=== PATIENT | female | born 1955 | race African-American/Black ===

== ENCOUNTER 2025-06-30 22:48 | Inpatient (IN) | payer BC, MEDICAID ==
[~2025-06-30] VITALS: Ht 172.7 cm; Wt 192.3 kg
[2025-06-30] MEDS: LIDOCAINE HCL 1% 20ML VIAL INFIL ONE (23:15)
[2025-07-01 00:04] LABS: BASOPHILS % 0.4 % (0.0-2.0); EOSINOPHILS % 0.4 % (0.0-5.0); HEMATOCRIT. 44.8 % (36.0-48.0); HEMOGLOBIN. 13.5 g/dL (12.0-16.0); LYMPHOCYTES % 13.5 % (20.0-50.0); MEAN PLATELET VOLUME 8.6 fl (7.4-10.4); MONOCYTES % 6.1 % (2.0-8.0); NEUTROPHILS % 79.6 % (40.0-76.0); PLATELET 216 x1000/uL (130-400); RED BLOOD CELL COUNT 4.69 mill/uL (4.2-5.4); RED CELL DISTRIBUTION WIDTH 18.6 % (11.6-14.6)
[2025-07-01 00:19] LABS: TROPONIN I HIGH SENSITIVITY 8 ng/L (3.0-34)
[2025-07-01 00:46] LABS: CREATININE 1.3 mg/dL (0.6-1.0); UREA NITROGEN BLOOD 17 mg/dL (9-23)
[2025-07-01 00:47] LABS: PROTEIN TOTAL 7.8 g/dL (6.0-8.3)
[2025-07-01 00:48] LABS: ASPARTATE AMINOTRANSFERASE 45 IU/L (<34); BILIRUBIN DIRECT 0.2 mg/dL (<=3.0)
[2025-07-01 00:49] LABS: BILIRUBIN TOTAL 0.5 mg/dL (0.1-1.0)
[2025-07-01] MEDS: SODIUM CHLORIDE 0.9% 1,000 ML IV ONE (00:50)
[2025-07-01] MEDS: KETOROLAC 15MG/ML VIAL IV NR (02:06)
[2025-07-01 02:44] LABS: CREATININE 1.3 mg/dL (0.6-1.0); UREA NITROGEN BLOOD 22.0 mg/dL (9-23)
[2025-07-01] MEDS ORDERED: ONDANSETRON HCL 4MG/2ML INJ IV PRN (02:45)
[2025-07-01] MEDS ORDERED: GUAIFENESIN 200MG/10ML SUGAR FREE UDC PO PRN (02:45)
[2025-07-01] MEDS ORDERED: ACETAMINOPHEN 325MG TABLET PO PRN (02:45)
[2025-07-01 03:55] VITALS: BP 122/41; PULSE 78; RESP 20; TEMP 36.6404
[2025-07-01] MEDS: FUROSEMIDE 20MG TABLET PO SCH (05:13)
[2025-07-01] MEDS: GABAPENTIN 300MG CAPSULE PO SCH (06:05)
[2025-07-01] MEDS: LEVOTHYROXINE SODIUM 25MCG TABLET PO SCH (06:05)
[2025-07-01 07:25] LABS: INFLUENZA TYPE A Presumptive Negative (Pres. Neg.); INFLUENZA TYPE B Presumptive Negative (Pres. Neg.); RESPIRATORY SYNCYTIAL VIRUS Not Detected (Not Detectd)
[2025-07-01 08:00] VITALS: BP 118/61; PULSE 76; RESP 20; TEMP 36.5; O2SAT 94
[2025-07-01] MEDS: APIXABAN 5 MG TABLET PO SCH (08:58)
[2025-07-01] MEDS: FOLIC ACID/VITAMIN B COMP W-C TABLET PO SCH (08:58)
[2025-07-01] MEDS: HYDROCHLOROTHIAZIDE 25MG TABLET PO SCH (08:59)
[2025-07-01] MEDS: PANTOPRAZOLE 40MG DR TABLET PO SCH (08:59)
[2025-07-01] MEDS: OXYBUTYNIN CHLORIDE 5MG TABLET PO SCH (08:59)
[2025-07-01] MEDS: LOSARTAN 100 MG TABLET PO SCH (09:01)
[2025-07-01 12:00] VITALS: BP 99/44; PULSE 81; RESP 17; TEMP 36.7; O2SAT 93
[2025-07-01 12:35] LABS: FOLIC ACID (FOLATE) SERUM > 20.00 ng/mL (>5.38)
[2025-07-01 12:36] LABS: VITAMIN B12 SERUM 615 pg/mL (211-911)
[2025-07-01 16:00] VITALS: BP 101/46; PULSE 71; RESP 17; TEMP 36.7; O2SAT 89
[2025-07-01] MEDS: MONTELUKAST SODIUM 10MG TABLET PO SCH (18:07)
[2025-07-01 20:00] VITALS: BP 118/64; PULSE 79; RESP 20; TEMP 36.4; O2SAT 94
[2025-07-01] MEDS: ATORVASTATIN CALCIUM 40MG TABLET PO SCH (22:03)
[2025-07-02] VITALS (13 sets, daily range): BP systolic 103–121; BP diastolic 58–73; PULSE 72–83; RESP 15–32; TEMP 36.3–36.8; O2SAT 87–97
[2025-07-02] MEDS: IPRATROPIUM/ALBUTEROL 0.5-3(2.5)MG/3ML NEB HHN PRN (09:16)
[2025-07-02 09:42] LABS: BG BASE EXCESS 0.6 mmol/L (-2.0-3.0); BG CARBOXYHEMOGLOBIN 2.5 % (0.5-1.5); BG DEOXYHEMOGLOBIN 12.4 % (0.0-5.0); BG FLOW(L/min) 5.00 L/min; BG FRACTION INSPIRED OXYGEN 40; BG HCO3 ACT 35.3 mmol/L (21.0-28.0); BG METHEMOGLOBIN 0.2 % (0.5-1.5); BG OXYGEN SATURATION 87.3 % (94.0-98.0); BG OXYHEMOGLOBIN 84.9 % (94.0-98.0); BG PCO2 129.3 mmHg (32.0-45.0); BG PH 7.054 (7.350-7.450); BG PO2 55.9 mmHg (83.0-108.0); BG SAMPLE SITE RIGHT RADIAL; BG TOTAL HEMOGLOBIN 14.3 g/dL (12.0-16.0); BG VENT MODE NASAL CANNULA
[2025-07-02] MEDS ORDERED: DIPHENHYDRAMINE 50MG/ML VIAL IV ONE (10:45)
[2025-07-02] MEDS: METHYLPREDNISOLONE SOD SUCC 125MG/2ML (ACT-O-VIAL) IV NR (11:20)
[2025-07-02] MEDS: IPRATROPIUM/ALBUTEROL 0.5-3(2.5)MG/3ML NEB HHN SCH (12:24)
[2025-07-02] MEDS: BUDESONIDE 0.5MG/2ML NEB HHN SCH (12:24)
[2025-07-02 12:36] LABS: BG BASE EXCESS 2.9 mmol/L (-2.0-3.0); BG CARBOXYHEMOGLOBIN 2.4 % (0.5-1.5); BG DEOXYHEMOGLOBIN 7.2 % (0.0-5.0); BG FRACTION INSPIRED OXYGEN 55; BG HCO3 ACT 36.5 mmol/L (21.0-28.0); BG METHEMOGLOBIN 0.3 % (0.5-1.5); BG OXYGEN SATURATION 92.6 % (94.0-98.0); BG OXYHEMOGLOBIN 90.1 % (94.0-98.0); BG PCO2 118.3 mmHg (32.0-45.0); BG PH 7.107 (7.350-7.450); BG PO2 65.9 mmHg (83.0-108.0); BG SAMPLE SITE RIGHT RADIAL; BG TOTAL HEMOGLOBIN 13.9 g/dL (12.0-16.0); BG VENT MODE MASK - BIPAP; BG VENT RATE 26.0 set
[2025-07-02] MEDS ORDERED: DEXTROSE 50% WATER 50ML SYRINGE IV PRN (13:15)
[2025-07-02] MEDS ORDERED: METHYLPREDNISOLONE SOD SUCC 40MG/ML (ACT-O-VIAL) IV SCH (14:00)
[2025-07-02] MEDS: BLOOD SUGAR DIAGNOSTIC STRIP TEST SCH (17:15)
[2025-07-02] MEDS: INSULIN LISPRO 100 UNITS/ML SUBCUT SCH (17:15)
[2025-07-02 17:19] LABS: BG BASE EXCESS 4.3 mmol/L (-2.0-3.0); BG CARBOXYHEMOGLOBIN 2.0 % (0.5-1.5); BG DEOXYHEMOGLOBIN 10.1 % (0.0-5.0); BG FRACTION INSPIRED OXYGEN 55; BG HCO3 ACT 36.8 mmol/L (21.0-28.0); BG METHEMOGLOBIN 0.0 % (0.5-1.5); BG OXYGEN SATURATION 89.7 % (94.0-98.0); BG OXYHEMOGLOBIN 87.9 % (94.0-98.0); BG PCO2 105.3 mmHg (32.0-45.0); BG PH 7.161 (7.350-7.450); BG PO2 58.2 mmHg (83.0-108.0); BG SAMPLE SITE RIGHT RADIAL; BG TOTAL HEMOGLOBIN 13.9 g/dL (12.0-16.0); BG VENT MODE MASK - BIPAP; BG VENT RATE 28.0 set
[2025-07-02] MEDS: DEXT 5%/0.9% NACL 1,000 ML IV SCH (21:07)
[2025-07-02 23:06] LABS: BG BASE EXCESS 4.1 mmol/L (-2.0-3.0); BG CARBOXYHEMOGLOBIN 1.6 % (0.5-1.5); BG DEOXYHEMOGLOBIN 8.1 % (0.0-5.0); BG FRACTION INSPIRED OXYGEN 60; BG HCO3 ACT 35.9 mmol/L (21.0-28.0); BG METHEMOGLOBIN 0.1 % (0.5-1.5); BG OXYGEN SATURATION 91.8 % (94.0-98.0); BG OXYHEMOGLOBIN 90.2 % (94.0-98.0); BG PCO2 100.0 mmHg (32.0-45.0); BG PH 7.173 (7.350-7.450); BG PO2 66.4 mmHg (83.0-108.0); BG SAMPLE SITE LEFT RADIAL; BG TOTAL HEMOGLOBIN 13.3 g/dL (12.0-16.0); BG VENT MODE MASK - BIPAP; BG VENT RATE 28.0 set
[2025-07-03] VITALS (20 sets, daily range): BP systolic 91–120; BP diastolic 47–71; PULSE 68–86; RESP 17–34; TEMP 36.2–37.1; O2SAT 95–100
[2025-07-03] MEDS: INSULIN LISPRO 100 UNITS/ML SUBCUT SCH
[2025-07-03] MEDS: ACETAMINOPHEN 325MG TABLET PO PRN (00:32)
[2025-07-03] MEDS: DEXAMETHASONE 10 MG/ML VIAL IV SCH (08:26)
[2025-07-03 10:06] LABS: BASOPHILS % 0.2 % (0.0-2.0); EOSINOPHILS % 0.1 % (0.0-5.0); HEMATOCRIT. 39.8 % (36.0-48.0); HEMOGLOBIN. 12.0 g/dL (12.0-16.0); LYMPHOCYTES % 11.0 % (20.0-50.0); MEAN PLATELET VOLUME 7.9 fl (7.4-10.4); MONOCYTES % 6.0 % (2.0-8.0); NEUTROPHILS % 82.7 % (40.0-76.0); PLATELET 147 x1000/uL (130-400); RED BLOOD CELL COUNT 4.11 mill/uL (4.2-5.4); RED CELL DISTRIBUTION WIDTH 18.1 % (11.6-14.6)
[2025-07-03 10:23] LABS: TROPONIN I HIGH SENSITIVITY 9 ng/L (3.0-34)
[2025-07-03 10:24] LABS: TROPONIN I HIGH SENSITIVITY 10 ng/L (3.0-34)
[2025-07-03 10:36] LABS: CREATININE 1.5 mg/dL (0.6-1.0)
[2025-07-03 10:37] LABS: LDL CHOLESTEROL 34 mg/dL (5-100); TRIGLYCERIDE 54 mg/dL (0-150); UREA NITROGEN BLOOD 30 mg/dL (9-23)
[2025-07-03 10:39] LABS: PHOSPHORUS 5.3 mg/dL (2.5-4.9)
[2025-07-03 10:42] LABS: T4 FREE 0.65 ng/dL (0.89-1.76)
[2025-07-03] MEDS: FOLIC ACID/VITAMIN B COMP W-C TABLET PO SCH (11:05)
[2025-07-03 11:09] LABS: BG BASE EXCESS 4.0 mmol/L (-2.0-3.0); BG CARBOXYHEMOGLOBIN 1.7 % (0.5-1.5); BG DEOXYHEMOGLOBIN 9.5 % (0.0-5.0); BG FRACTION INSPIRED OXYGEN 55; BG HCO3 ACT 34.2 mmol/L (21.0-28.0); BG METHEMOGLOBIN 0.3 % (0.5-1.5); BG OXYGEN SATURATION 90.3 % (94.0-98.0); BG OXYHEMOGLOBIN 88.5 % (94.0-98.0); BG PCO2 84.4 mmHg (32.0-45.0); BG PH 7.225 (7.350-7.450); BG PO2 60.4 mmHg (83.0-108.0); BG SAMPLE SITE LEFT RADIAL; BG TOTAL HEMOGLOBIN 12.7 g/dL (12.0-16.0); BG VENT RATE 22.0 set
[2025-07-03] MEDS: MENTHOL/LANOLIN/CALAMINE/ZN OX OINT 71GM TOP SCH (13:40)
[2025-07-03] MEDS: CALCIUM CHLORIDE 1GM/10ML SYR IV NR (13:41)
[2025-07-03] MEDS: DEXTROSE 50% WATER 50ML SYRINGE IV NR (13:41)
[2025-07-03] MEDS: INSULIN REGULAR (HUMULIN R) 1000UNITS/10ML VIAL IV NR (13:42)
[2025-07-03] MEDS: ALBUTEROL (0.5%) 2.5MG/0.5ML NEB HHN NR (16:31)
[2025-07-03 19:22] LABS: BG BASE EXCESS 3.1 mmol/L (-2.0-3.0); BG CARBOXYHEMOGLOBIN 1.2 % (0.5-1.5); BG DEOXYHEMOGLOBIN 3.8 % (0.0-5.0); BG FRACTION INSPIRED OXYGEN 55; BG HCO3 ACT 33.0 mmol/L (21.0-28.0); BG METHEMOGLOBIN 0.3 % (0.5-1.5); BG OXYGEN SATURATION 96.1 % (94.0-98.0); BG OXYHEMOGLOBIN 94.7 % (94.0-98.0); BG PCO2 81.3 mmHg (32.0-45.0); BG PH 7.226 (7.350-7.450); BG PO2 84.8 mmHg (83.0-108.0); BG SAMPLE SITE RIGHT RADIAL; BG TOTAL HEMOGLOBIN 12.3 g/dL (12.0-16.0); BG VENT MODE MASK - BIPAP; BG VENT RATE 22.0 set
[2025-07-03 19:52] LABS: INR 1.1
[2025-07-03] MEDS: CALCIUM GLUCONATE 1,000 MG in DEXT 5% WATER 90 ML IV SCH (22:00)
[2025-07-03] MEDS: SODIUM ZIRCONIUM CYCLOSILICATE 10GM/PACKET PO SCH (22:04)
[2025-07-04] VITALS (18 sets, daily range): BP systolic 96–134; BP diastolic 46–67; PULSE 68–97; RESP 16–29; TEMP 36.7–37.1; O2SAT 93–98
[2025-07-04 08:36] LABS: BG BASE EXCESS 4.2 mmol/L (-2.0-3.0); BG CARBOXYHEMOGLOBIN 1.2 % (0.5-1.5); BG DEOXYHEMOGLOBIN 6.7 % (0.0-5.0); BG FRACTION INSPIRED OXYGEN 55; BG HCO3 ACT 34.0 mmol/L (21.0-28.0); BG METHEMOGLOBIN 0.3 % (0.5-1.5); BG OXYGEN SATURATION 93.2 % (94.0-98.0); BG OXYHEMOGLOBIN 91.8 % (94.0-98.0); BG PCO2 82.0 mmHg (32.0-45.0); BG PH 7.236 (7.350-7.450); BG PO2 68.5 mmHg (83.0-108.0); BG SAMPLE SITE LEFT RADIAL; BG TOTAL HEMOGLOBIN 12.2 g/dL (12.0-16.0); BG VENT MODE MASK - BIPAP; BG VENT RATE 28.0 set
[2025-07-04] MEDS ORDERED: SODIUM ZIRCONIUM CYCLOSILICATE 10GM/PACKET PO NR (09:15)
[2025-07-04] MEDS ORDERED: SODIUM CHLORIDE 0.9% 500 ML IV SCH (10:00)
[2025-07-04] MEDS: SODIUM CHLORIDE 0.9% 100 ML IV ONE (11:00)
[2025-07-04 11:54] LABS: CREATININE 1.5 mg/dL (0.6-1.0); UREA NITROGEN BLOOD 25 mg/dL (9-23)
[2025-07-04 11:56] LABS: PHOSPHORUS 4.4 mg/dL (2.5-4.9)
[2025-07-04 17:36] LABS: BG BASE EXCESS 2.2 mmol/L (-2.0-3.0); BG CARBOXYHEMOGLOBIN 1.2 % (0.5-1.5); BG DEOXYHEMOGLOBIN 2.3 % (0.0-5.0); BG FRACTION INSPIRED OXYGEN 55; BG HCO3 ACT 32.1 mmol/L (21.0-28.0); BG METHEMOGLOBIN 0.0 % (0.5-1.5); BG OXYGEN SATURATION 97.7 % (94.0-98.0); BG OXYHEMOGLOBIN 96.5 % (94.0-98.0); BG PCO2 79.1 mmHg (32.0-45.0); BG PH 7.226 (7.350-7.450); BG PO2 99.2 mmHg (83.0-108.0); BG SAMPLE SITE RH; BG TOTAL HEMOGLOBIN 12.9 g/dL (12.0-16.0); BG VENT MODE MASK - BIPAP; BG VENT RATE 28.0 set
[2025-07-04 19:07] LABS: CLARITY URINE TURBID (CLEAR); COLOR URINE DARK YELLOW (YELLOW); GLUCOSE URINE NEGATIVE (NEGATIVE); KETONES URINE NEGATIVE (NEGATIVE); LEUKOCYTE ESTERASE URINE 2+ (NEGATIVE); NITRITE URINE NEGATIVE (NEGATIVE); OCCULT BLOOD URINE NEGATIVE (NEGATIVE); PH URINE 8.5 (4.5-8.0); PROTEIN URINE 2+ (NEGATIVE); SPECIFIC GRAVITY URINE 1.016 (1.005-1.030); UROBILINOGEN URINE 1.0 E.U./dL (0.2-1.0)
[2025-07-04 19:52] LABS: AMORPHOUS SEDIMENT URINE 3+ /lpf; BACTERIA URINE 2+; MUCUS URINE 1+ /lpf (< = 2+); RBC URINE NONE SEEN /hpf (0-2); SQUAMOUS EPITHELIAL CELL URINE RARE /lpf (RARE/1+); YEAST URINE 1+
[2025-07-04] MEDS: SODIUM ZIRCONIUM CYCLOSILICATE 10GM/PACKET PO NR (23:17)
[2025-07-05] VITALS (17 sets, daily range): BP systolic 104–139; BP diastolic 55–73; PULSE 76–107; RESP 15–30; TEMP 36.3–36.9; O2SAT 94–100
[2025-07-05 06:54] LABS: BASOPHILS % 0.3 % (0.0-2.0); EOSINOPHILS % 1.1 % (0.0-5.0); HEMATOCRIT. 40.1 % (36.0-48.0); HEMOGLOBIN. 12.1 g/dL (12.0-16.0); LYMPHOCYTES % 16.7 % (20.0-50.0); MEAN PLATELET VOLUME 8.1 fl (7.4-10.4); MONOCYTES % 8.6 % (2.0-8.0); NEUTROPHILS % 73.3 % (40.0-76.0); PLATELET 166 x1000/uL (130-400); RED BLOOD CELL COUNT 4.18 mill/uL (4.2-5.4); RED CELL DISTRIBUTION WIDTH 17.8 % (11.6-14.6)
[2025-07-05 07:16] LABS: UREA NITROGEN BLOOD 30 mg/dL (9-23)
[2025-07-05 07:17] LABS: CREATININE 1.3 mg/dL (0.6-1.0)
[2025-07-05 07:18] LABS: PROTEIN TOTAL 6.1 g/dL (6.0-8.3)
[2025-07-05 07:19] LABS: ASPARTATE AMINOTRANSFERASE 15 IU/L (<34)
[2025-07-05 07:20] LABS: BILIRUBIN DIRECT 0.2 mg/dL (<=3.0); BILIRUBIN TOTAL 0.4 mg/dL (0.1-1.0); PHOSPHORUS 3.9 mg/dL (2.5-4.9)
[2025-07-05] MEDS: SODIUM ZIRCONIUM CYCLOSILICATE 10GM/PACKET PO SCH (14:42)
[2025-07-05 18:00] LABS: BG BASE EXCESS 4.8 mmol/L (-2.0-3.0); BG CARBOXYHEMOGLOBIN 1.4 % (0.5-1.5); BG DEOXYHEMOGLOBIN 6.4 % (0.0-5.0); BG FLOW(L/min) 2.00 L/min; BG FRACTION INSPIRED OXYGEN 28; BG HCO3 ACT 34.5 mmol/L (21.0-28.0); BG METHEMOGLOBIN 0.1 % (0.5-1.5); BG OXYGEN SATURATION 93.5 % (94.0-98.0); BG OXYHEMOGLOBIN 92.1 % (94.0-98.0); BG PCO2 80.5 mmHg (32.0-45.0); BG PH 7.250 (7.350-7.450); BG PO2 67.9 mmHg (83.0-108.0); BG SAMPLE SITE RIGHT RADIAL; BG TOTAL HEMOGLOBIN 12.7 g/dL (12.0-16.0); BG VENT MODE NASAL CANNULA
[2025-07-06] VITALS (18 sets, daily range): BP systolic 87–145; BP diastolic 57–78; PULSE 76–110; RESP 19–37; TEMP 36.2–36.9; O2SAT 91–100
[2025-07-06 07:10] LABS: BASOPHILS % 0.2 % (0.0-2.0); EOSINOPHILS % 1.2 % (0.0-5.0); HEMATOCRIT. 36.9 % (36.0-48.0); HEMOGLOBIN. 10.9 g/dL (12.0-16.0); LYMPHOCYTES % 16.1 % (20.0-50.0); MEAN PLATELET VOLUME 8.0 fl (7.4-10.4); MONOCYTES % 11.3 % (2.0-8.0); NEUTROPHILS % 71.2 % (40.0-76.0); PLATELET 137 x1000/uL (130-400); RED BLOOD CELL COUNT 3.80 mill/uL (4.2-5.4); RED CELL DISTRIBUTION WIDTH 18.1 % (11.6-14.6)
[2025-07-06 07:21] LABS: CREATININE 1.1 mg/dL (0.6-1.0); UREA NITROGEN BLOOD 22 mg/dL (9-23)
[2025-07-06 07:22] LABS: PROTEIN TOTAL 5.6 g/dL (6.0-8.3)
[2025-07-06 07:23] LABS: ASPARTATE AMINOTRANSFERASE 13 IU/L (<34); BILIRUBIN DIRECT 0.2 mg/dL (<=3.0); BILIRUBIN TOTAL 0.4 mg/dL (0.1-1.0); PHOSPHORUS 3.1 mg/dL (2.5-4.9)
[2025-07-06 09:19] LABS: BG BASE EXCESS 4.8 mmol/L (-2.0-3.0); BG CARBOXYHEMOGLOBIN 1.5 % (0.5-1.5); BG DEOXYHEMOGLOBIN 2.7 % (0.0-5.0); BG FRACTION INSPIRED OXYGEN 55; BG HCO3 ACT 34.6 mmol/L (21.0-28.0); BG METHEMOGLOBIN 0.0 % (0.5-1.5); BG OXYGEN SATURATION 97.3 % (94.0-98.0); BG OXYHEMOGLOBIN 95.8 % (94.0-98.0); BG PCO2 81.7 mmHg (32.0-45.0); BG PH 7.245 (7.350-7.450); BG PO2 89.2 mmHg (83.0-108.0); BG SAMPLE SITE LEFT RADIAL; BG TOTAL HEMOGLOBIN 12.6 g/dL (12.0-16.0); BG TOTAL RESPIRATORY RATE 33 b/min; BG VENT MODE MASK - BIPAP; BG VENT RATE 28.0 set
[2025-07-06] MEDS: SODIUM ZIRCONIUM CYCLOSILICATE 10GM/PACKET PO SCH (09:33)
[2025-07-06] MEDS: FUROSEMIDE 20MG/2ML VIAL IVP NR (18:17)
[2025-07-07] VITALS (17 sets, daily range): BP systolic 104–146; BP diastolic 51–76; PULSE 82–112; RESP 18–32; TEMP 36.4–37; O2SAT 69
[2025-07-07 06:05] LABS: UREA NITROGEN BLOOD 29 mg/dL (9-23)
[2025-07-07 06:08] LABS: CREATININE 1.0 mg/dL (0.6-1.0)
[2025-07-07 06:09] LABS: ASPARTATE AMINOTRANSFERASE 9 IU/L (<34); PROTEIN TOTAL 5.1 g/dL (6.0-8.3)
[2025-07-07 06:10] LABS: BILIRUBIN DIRECT 0.2 mg/dL (<=3.0); BILIRUBIN TOTAL 0.5 mg/dL (0.1-1.0); PHOSPHORUS 2.9 mg/dL (2.5-4.9)
[2025-07-07 06:53] LABS: BASOPHILS % 0.2 % (0.0-2.0); EOSINOPHILS % 2.0 % (0.0-5.0); HEMATOCRIT. 36.7 % (36.0-48.0); HEMOGLOBIN. 11.1 g/dL (12.0-16.0); LYMPHOCYTES % 15.3 % (20.0-50.0); MEAN PLATELET VOLUME 8.9 fl (7.4-10.4); MONOCYTES % 10.6 % (2.0-8.0); NEUTROPHILS % 71.9 % (40.0-76.0); PLATELET 130 x1000/uL (130-400); RED BLOOD CELL COUNT 3.87 mill/uL (4.2-5.4); RED CELL DISTRIBUTION WIDTH 18.1 % (11.6-14.6)
[2025-07-07 09:51] LABS: BG BASE EXCESS 9.8 mmol/L (-2.0-3.0); BG CARBOXYHEMOGLOBIN 1.8 % (0.5-1.5); BG DEOXYHEMOGLOBIN 6.1 % (0.0-5.0); BG FRACTION INSPIRED OXYGEN 35; BG HCO3 ACT 37.9 mmol/L (21.0-28.0); BG METHEMOGLOBIN 0.3 % (0.5-1.5); BG OXYGEN SATURATION 93.8 % (94.0-98.0); BG OXYHEMOGLOBIN 91.8 % (94.0-98.0); BG PCO2 70.8 mmHg (32.0-45.0); BG PH 7.347 (7.350-7.450); BG PO2 65.9 mmHg (83.0-108.0); BG SAMPLE SITE LEFT RADIAL; BG TOTAL HEMOGLOBIN 12.0 g/dL (12.0-16.0); BG VENT MODE MASK - BIPAP; BG VENT RATE 28.0 set
[2025-07-07] MEDS: SODIUM ZIRCONIUM CYCLOSILICATE 10GM/PACKET PO SCH (14:57)
[2025-07-07] MEDS ORDERED: IPRATROPIUM BROMIDE (0.02%) 0.5MG/2.5ML NEB ONE (21:23)
[2025-07-07] MEDS: DEXAMETHASONE 4MG TABLET PO SCH (21:29)
[2025-07-07] MEDS: DOCUSATE SODIUM 100MG CAPSULE PO PRN (23:40)
[2025-07-08] VITALS (15 sets, daily range): BP systolic 103–140; BP diastolic 58–80; PULSE 81–104; RESP 16–31; TEMP 36.2–36.9; O2SAT 94–95
[2025-07-08 06:08] LABS: BASOPHILS % 0.2 % (0.0-2.0); EOSINOPHILS % 0.2 % (0.0-5.0); HEMATOCRIT. 36.9 % (36.0-48.0); HEMOGLOBIN. 11.3 g/dL (12.0-16.0); LYMPHOCYTES % 10.2 % (20.0-50.0); MEAN PLATELET VOLUME 8.2 fl (7.4-10.4); MONOCYTES % 4.8 % (2.0-8.0); NEUTROPHILS % 84.6 % (40.0-76.0); PLATELET 122 x1000/uL (130-400); RED BLOOD CELL COUNT 3.96 mill/uL (4.2-5.4); RED CELL DISTRIBUTION WIDTH 17.9 % (11.6-14.6)
[2025-07-08 06:22] LABS: CREATININE 0.9 mg/dL (0.6-1.0)
[2025-07-08 06:23] LABS: UREA NITROGEN BLOOD 23 mg/dL (9-23)
[2025-07-08 06:25] LABS: PHOSPHORUS 2.7 mg/dL (2.5-4.9)
[2025-07-08] MEDS ORDERED: IPRATROPIUM/ALBUTEROL 0.5-3(2.5)MG/3ML NEB HHN PRN (07:00)
[2025-07-08] MEDS: FUROSEMIDE 40MG/4ML VIAL IVP SCH ×2 (09:06→19:02)
[2025-07-08] MEDS: CLONIDINE 0.1MG TABLET PO PRN (09:06)
[2025-07-08 09:42] LABS: BG BASE EXCESS 11.4 mmol/L (-2.0-3.0); BG CARBOXYHEMOGLOBIN 1.6 % (0.5-1.5); BG DEOXYHEMOGLOBIN 5.0 % (0.0-5.0); BG FRACTION INSPIRED OXYGEN 35; BG HCO3 ACT 38.8 mmol/L (21.0-28.0); BG METHEMOGLOBIN 0.3 % (0.5-1.5); BG OXYGEN SATURATION 94.9 % (94.0-98.0); BG OXYHEMOGLOBIN 93.1 % (94.0-98.0); BG PCO2 66.1 mmHg (32.0-45.0); BG PH 7.387 (7.350-7.450); BG PO2 71.4 mmHg (83.0-108.0); BG SAMPLE SITE LEFT RADIAL; BG TOTAL HEMOGLOBIN 12.3 g/dL (12.0-16.0); BG VENT MODE MASK - BIPAP; BG VENT RATE 28.0 set
[2025-07-08] MEDS: LACTULOSE ENEMA 1,000ML BOTTLE PR SCH (12:00)
[2025-07-08] MEDS: EMPAGLIFLOZIN 10MG TABLET PO SCH (15:00)
[2025-07-08] MEDS: LACTULOSE 20G/30ML UDC PO NR (15:20)
[2025-07-09] VITALS (17 sets, daily range): BP systolic 89–145; BP diastolic 52–105; PULSE 49–92; RESP 14–31; TEMP 36.4–36.8; O2SAT 95–98
[2025-07-09 12:22] LABS: BG BASE EXCESS 11.9 mmol/L (-2.0-3.0); BG CARBOXYHEMOGLOBIN 2.3 % (0.5-1.5); BG DEOXYHEMOGLOBIN 3.3 % (0.0-5.0); BG FLOW(L/min) 4.00 L/min; BG FRACTION INSPIRED OXYGEN 36; BG HCO3 ACT 40.2 mmol/L (21.0-28.0); BG METHEMOGLOBIN 0.0 % (0.5-1.5); BG OXYGEN SATURATION 96.6 % (94.0-98.0); BG OXYHEMOGLOBIN 94.4 % (94.0-98.0); BG PCO2 72.2 mmHg (32.0-45.0); BG PH 7.364 (7.350-7.450); BG PO2 82.5 mmHg (83.0-108.0); BG SAMPLE SITE LEFT RADIAL; BG TOTAL HEMOGLOBIN 12.9 g/dL (12.0-16.0); BG VENT MODE NASAL CANNULA
[2025-07-10] VITALS (15 sets, daily range): BP systolic 119–135; BP diastolic 35–81; PULSE 50–91; RESP 13–28; TEMP 36.6–36.9; O2SAT 93–99
[2025-07-10 01:43] LABS: BG BASE EXCESS 12.6 mmol/L (-2.0-3.0); BG CARBOXYHEMOGLOBIN 2.0 % (0.5-1.5); BG DEOXYHEMOGLOBIN 7.3 % (0.0-5.0); BG FRACTION INSPIRED OXYGEN 30; BG HCO3 ACT 39.8 mmol/L (21.0-28.0); BG METHEMOGLOBIN 0.0 % (0.5-1.5); BG OXYGEN SATURATION 92.6 % (94.0-98.0); BG OXYHEMOGLOBIN 90.7 % (94.0-98.0); BG PCO2 64.0 mmHg (32.0-45.0); BG PH 7.412 (7.350-7.450); BG PO2 61.9 mmHg (83.0-108.0); BG SAMPLE SITE LEFT RADIAL; BG TOTAL HEMOGLOBIN 13.0 g/dL (12.0-16.0); BG TOTAL RESPIRATORY RATE 32 b/min; BG VENT MODE MASK - BIPAP; BG VENT RATE 28.0 set
[2025-07-10 04:42] LABS: BASOPHILS % 0.6 % (0.0-2.0); EOSINOPHILS % 0.7 % (0.0-5.0); HEMATOCRIT. 38.7 % (36.0-48.0); HEMOGLOBIN. 11.7 g/dL (12.0-16.0); LYMPHOCYTES % 7.4 % (20.0-50.0); MEAN PLATELET VOLUME 9.0 fl (7.4-10.4); MONOCYTES % 5.1 % (2.0-8.0); NEUTROPHILS % 86.2 % (40.0-76.0); PLATELET 127 x1000/uL (130-400); RED BLOOD CELL COUNT 4.15 mill/uL (4.2-5.4); RED CELL DISTRIBUTION WIDTH 17.6 % (11.6-14.6)
[2025-07-10 05:16] LABS: CREATININE 0.9 mg/dL (0.6-1.0); TROPONIN I HIGH SENSITIVITY 5 ng/L (3.0-34); UREA NITROGEN BLOOD 21 mg/dL (9-23)
[2025-07-10 05:18] LABS: PHOSPHORUS 3.4 mg/dL (2.5-4.9)
[2025-07-10] MEDS: MAGNESIUM OXIDE 400MG TABLET PO SCH (09:45)
[2025-07-10] MEDS: MAGNESIUM 2 G PREMIX 50 ML IV SCH (11:30)
[2025-07-11] VITALS: BP 107/52; PULSE 43; RESP 19; TEMP 36.4; O2SAT 93
[2025-07-11 04:00] VITALS: BP 120/67; PULSE 88; RESP 22; TEMP 37.4; O2SAT 86
[2025-07-11 08:00] VITALS: BP 130/80; PULSE 102; RESP 20; TEMP 36.7; O2SAT 97
[2025-07-11 08:58] LABS: BASOPHILS % 0.3 % (0.0-2.0); EOSINOPHILS % 0.6 % (0.0-5.0); HEMATOCRIT. 38.6 % (36.0-48.0); HEMOGLOBIN. 12.1 g/dL (12.0-16.0); LYMPHOCYTES % 10.8 % (20.0-50.0); MEAN PLATELET VOLUME 9.0 fl (7.4-10.4); MONOCYTES % 6.1 % (2.0-8.0); NEUTROPHILS % 82.2 % (40.0-76.0); PLATELET 138 x1000/uL (130-400); RED BLOOD CELL COUNT 4.23 mill/uL (4.2-5.4); RED CELL DISTRIBUTION WIDTH 17.4 % (11.6-14.6)
[2025-07-11 09:13] LABS: CREATININE 1.0 mg/dL (0.6-1.0); UREA NITROGEN BLOOD 18 mg/dL (9-23)
[2025-07-11 09:16] LABS: PHOSPHORUS 3.1 mg/dL (2.5-4.9)
[2025-07-11 12:00] VITALS: BP 133/81; PULSE 97; RESP 22; TEMP 37.1; O2SAT 97
[2025-07-11 16:00] VITALS: BP 153/82; PULSE 87; RESP 20; TEMP 36.8; O2SAT 97
[2025-07-11] MEDS: INSULIN LISPRO 100 UNITS/ML SUBCUT SCH (18:57)
[2025-07-11 20:00] VITALS: BP 145/77; PULSE 69; RESP 17; TEMP 37; O2SAT 96
[2025-07-11] MEDS: BLOOD SUGAR DIAGNOSTIC STRIP TEST SCH (21:00)
[2025-07-11] MEDS ORDERED: INSULIN LISPRO 100 UNITS/ML SUBCUT SCH (21:00)
[2025-07-12] VITALS (7 sets, daily range): BP systolic 108–157; BP diastolic 47–90; PULSE 48–103; RESP 16–21; TEMP 36.3–37.2; O2SAT 94–100
[2025-07-12 07:52] LABS: CREATININE 0.9 mg/dL (0.6-1.0)
[2025-07-12 07:54] LABS: UREA NITROGEN BLOOD 18 mg/dL (9-23)
[2025-07-12 07:55] LABS: BASOPHILS % 0.2 % (0.0-2.0); EOSINOPHILS % 0.3 % (0.0-5.0); HEMATOCRIT. 38.0 % (36.0-48.0); HEMOGLOBIN. 11.7 g/dL (12.0-16.0); LYMPHOCYTES % 13.1 % (20.0-50.0); MEAN PLATELET VOLUME 9.0 fl (7.4-10.4); MONOCYTES % 6.2 % (2.0-8.0); NEUTROPHILS % 80.2 % (40.0-76.0); PLATELET 140 x1000/uL (130-400); RED BLOOD CELL COUNT 4.11 mill/uL (4.2-5.4); RED CELL DISTRIBUTION WIDTH 17.4 % (11.6-14.6)
[2025-07-12 07:56] LABS: PHOSPHORUS 3.1 mg/dL (2.5-4.9)
[2025-07-12 10:57] LABS: BG BASE EXCESS 17.5 mmol/L (-2.0-3.0); BG CARBOXYHEMOGLOBIN 1.4 % (0.5-1.5); BG DEOXYHEMOGLOBIN 5.4 % (0.0-5.0); BG FLOW(L/min) 3.50 L/min; BG FRACTION INSPIRED OXYGEN 34; BG HCO3 ACT 45.9 mmol/L (21.0-28.0); BG METHEMOGLOBIN 0.3 % (0.5-1.5); BG OXYGEN SATURATION 94.5 % (94.0-98.0); BG OXYHEMOGLOBIN 92.9 % (94.0-98.0); BG PCO2 74.0 mmHg (32.0-45.0); BG PH 7.410 (7.350-7.450); BG PO2 70.7 mmHg (83.0-108.0); BG SAMPLE SITE LEFT RADIAL; BG TOTAL HEMOGLOBIN 12.8 g/dL (12.0-16.0); BG VENT MODE NASAL CANNULA
[2025-07-13] VITALS (12 sets, daily range): BP systolic 104–147; BP diastolic 53–68; PULSE 54–89; RESP 15–22; TEMP 34.8–36.8; O2SAT 95–100
[2025-07-13 07:32] LABS: CREATININE 0.8 mg/dL (0.6-1.0)
[2025-07-13 07:33] LABS: UREA NITROGEN BLOOD 15 mg/dL (9-23)
[2025-07-13 07:35] LABS: PHOSPHORUS 3.0 mg/dL (2.5-4.9)
[2025-07-13] MEDS: IPRATROPIUM/ALBUTEROL 0.5-3(2.5)MG/3ML NEB ONE ×2 (09:10→18:14)
[2025-07-13] MEDS: DEXAMETHASONE 4MG TABLET PO SCH (09:25)
[2025-07-13 12:10] LABS: BG BASE EXCESS 16.3 mmol/L (-2.0-3.0); BG CARBOXYHEMOGLOBIN 1.3 % (0.5-1.5); BG DEOXYHEMOGLOBIN 9.4 % (0.0-5.0); BG FRACTION INSPIRED OXYGEN 36; BG HCO3 ACT 43.6 mmol/L (21.0-28.0); BG METHEMOGLOBIN 0.3 % (0.5-1.5); BG OXYGEN SATURATION 90.4 % (94.0-98.0); BG OXYHEMOGLOBIN 89.0 % (94.0-98.0); BG PCO2 65.2 mmHg (32.0-45.0); BG PH 7.443 (7.350-7.450); BG PO2 55.9 mmHg (83.0-108.0); BG SAMPLE SITE RIGHT RADIAL; BG TOTAL HEMOGLOBIN 13.0 g/dL (12.0-16.0); BG VENT MODE NASAL CANNULA
[2025-07-13 13:01] LABS: HEMATOCRIT. 38.9 % (36.0-48.0); HEMOGLOBIN. 11.8 g/dL (12.0-16.0); MEAN PLATELET VOLUME 8.6 fl (7.4-10.4); PLATELET 167 x1000/uL (130-400); RED BLOOD CELL COUNT 4.22 mill/uL (4.2-5.4); RED CELL DISTRIBUTION WIDTH 17.3 % (11.6-14.6)
[2025-07-13 14:27] LABS: EOSINOPHILS % MANUAL 2.0 % (0.0-5.0); LYMPHOCYTES % MANUAL 9.0 % (20.0-60.0); MONOCYTES % MANUAL 6.0 % (2.0-8.0); NEUTROPHILS % MANUAL 83.0 % (45.0-75.0); PLATELET ESTIMATE NORMAL
[2025-07-13] MEDS: FLUTICASONE PROPIONATE 50MCG/SPRAY BOTTLE BOTHNSTRLS SCH (14:30)
[2025-07-14] VITALS (12 sets, daily range): BP systolic 110–138; BP diastolic 50–76; PULSE 64–104; RESP 18–24; TEMP 36.4–37.1; O2SAT 95–100
[2025-07-14 07:10] LABS: BASOPHILS % 0.5 % (0.0-2.0); EOSINOPHILS % 1.7 % (0.0-5.0); HEMATOCRIT. 37.3 % (36.0-48.0); HEMOGLOBIN. 11.5 g/dL (12.0-16.0); LYMPHOCYTES % 19.3 % (20.0-50.0); MEAN PLATELET VOLUME 9.2 fl (7.4-10.4); MONOCYTES % 8.8 % (2.0-8.0); NEUTROPHILS % 69.7 % (40.0-76.0); PLATELET 172 x1000/uL (130-400); RED BLOOD CELL COUNT 4.02 mill/uL (4.2-5.4); RED CELL DISTRIBUTION WIDTH 17.5 % (11.6-14.6)
[2025-07-14 07:28] LABS: CREATININE 0.8 mg/dL (0.6-1.0)
[2025-07-14 07:29] LABS: UREA NITROGEN BLOOD 23 mg/dL (9-23)
[2025-07-14 07:31] LABS: PHOSPHORUS 3.6 mg/dL (2.5-4.9)
[2025-07-14] MEDS ORDERED: LEVO25TA7 PO (14:56)
[2025-07-14] MEDS ORDERED: LIP40 PO (14:56)
[2025-07-14] MEDS ORDERED: GABA-1180 PO (14:56)
[2025-07-14] MEDS ORDERED: APIX5TAB PO (14:59)
== END 2025-07-14 23:20 | disposition short-term general hospital (02) | DRG 871 ==
LOC: ER 22:48 → 8EST 07-01 00:57 → EDBEDREQ 07-01 00:59 → EDBEDREQTM 07-01 00:59 → EDBEDREQDT 07-01 00:59 → ENRESERV 07-01 02:34 → 6EST 07-01 17:07 → 8EST 07-01 17:08 → 5EST 07-02 17:55 → 8WST 07-10 21:22 → 5EST 07-10 22:00 → 5WST 07-11 14:05
PROVIDERS: ADMIT Internal Medicine; ATTEND Internal Medicine
PROC: 5A09457 Assistance with Respiratory Ventilation, 24-96 Consecutive Hours, Continuous Positive Airway Pressure (ICD-10-PCS; 2025-07-05)
PROC: 5A09457 Assistance with Respiratory Ventilation, 24-96 Consecutive Hours, Continuous Positive Airway Pressure (ICD-10-PCS; principal; 2025-07-09)
PROC: 5A09357 Assistance with Respiratory Ventilation, Less than 24 Consecutive Hours, Continuous Positive Airway Pressure (ICD-10-PCS; 2025-07-11)
PROC: 5A09357 Assistance with Respiratory Ventilation, Less than 24 Consecutive Hours, Continuous Positive Airway Pressure (ICD-10-PCS; 2025-07-12)
PROC: 5A09357 Assistance with Respiratory Ventilation, Less than 24 Consecutive Hours, Continuous Positive Airway Pressure (ICD-10-PCS; 2025-07-13)
PROC: 5A09357 Assistance with Respiratory Ventilation, Less than 24 Consecutive Hours, Continuous Positive Airway Pressure (ICD-10-PCS; 2025-07-14)
DX: A41.89 Other specified sepsis (principal); G82.50 Quadriplegia, unspecified; L89.323 Pressure ulcer of left buttock, stage 3; L89.893 Pressure ulcer of other site, stage 3; L89.313 Pressure ulcer of right buttock, stage 3; J12.82 Pneumonia due to coronavirus disease 2019; L89.153 Pressure ulcer of sacral region, stage 3; J96.21 Acute and chronic respiratory failure with hypoxia; U07.1 COVID-19; J96.22 Acute and chronic respiratory failure with hypercapnia; E87.29 Other acidosis; N17.9 Acute kidney failure, unspecified; Z68.44 Body mass index [BMI] 60.0-69.9, adult; E66.2 Morbid (severe) obesity with alveolar hypoventilation; S82.831A Other fracture of upper and lower end of right fibula, initial encounter for closed fracture; Z79.01 Long term (current) use of anticoagulants; M06.9 Rheumatoid arthritis, unspecified; E03.9 Hypothyroidism, unspecified; J45.909 Unspecified asthma, uncomplicated; N18.9 Chronic kidney disease, unspecified; I13.10 Hypertensive heart and chronic kidney disease without heart failure, with stage 1 through stage 4 chronic kidney disease, or unspecified chronic kidney disease; L89.95 Pressure ulcer of unspecified site, unstageable; I48.0 Paroxysmal atrial fibrillation; M47.9 Spondylosis, unspecified; E78.5 Hyperlipidemia, unspecified; I89.0 Lymphedema, not elsewhere classified; E87.5 Hyperkalemia; L22 Diaper dermatitis; I49.3 Ventricular premature depolarization; R73.9 Hyperglycemia, unspecified; E79.0 Hyperuricemia without signs of inflammatory arthritis and tophaceous disease; S91.311A Laceration without foreign body, right foot, initial encounter; E83.42 Hypomagnesemia; M48.00 Spinal stenosis, site unspecified; W18.39XA Other fall on same level, initial encounter; Z78.9 Other specified health status; Z79.899 Other long term (current) drug therapy; Z82.49 Family history of ischemic heart disease and other diseases of the circulatory system; Z88.7 Allergy status to serum and vaccine; Z98.1 Arthrodesis status; Y92.89 Other specified places as the place of occurrence of the external cause; Y93.89 Activity, other specified; Y99.8 Other external cause status; Z99.81 Dependence on supplemental oxygen
CPT/HCPCS: 36415; 36600; 71045; 71250; 72131; 73590; 73610; 73630; 76770; 80048; 80051; 80061; 80076; 81003; 82375; 82550; 82607; 82746; 82805; 82962; 83036; 83735; 83880; 84100; 84145; 84439; 84443; 84484; 84550; 85025; 85379; 87420; 87426; 87804; 93005; 93306; 93970; 94070; 94640; 94660; 94664; 94760; 96360; 97110; 97162; 97166; 97530; 99285; A4606; A4615; J0612; J1100; J1815; J1885; J1938; J2003; J2919; J3475; J3490; J7030; J7042; J7060; J7626; J8540